=== PATIENT | male | born 1960 | race Caucasian/White ===

== ENCOUNTER 2023-06-08 07:13 | Day surgery (SDC) | payer OTHER ==
[2023-06-04 10:26] VITALS: BMI 32.0
[~2023-06-08 07:13] MED LIST: LACTATED RINGERS 1,000 ML IV SCH; LIDOCAINE 1% (10MG/ML) FOR IV START INTRADERMA PRN
[2023-06-08] MEDS ORDERED: LACTATED RINGERS 1,000 ML IV ONE (07:29)
[2023-06-08 07:50] LABS: Glucose,Whole Blood 200 mg/dL (70-110)
[2023-06-08 08:00] VITALS: TEMP 96.8
[2023-06-08] MEDS ORDERED: PROPOFOL 10 MG/ML 20 ML VIAL IV ONE (08:12)
--- NOTE | 2023-06-08 08:38 | P.PCN ---
Date of Procedure: 06/08/23 Procedure(s) Performed: BRIEF HISTORY: Patient is a 63-year-old pleasant white male scheduled for an elective colonoscopy as a part of evaluation of prior history of colon polyps. PROCEDURE PERFORMED: Colonoscopy. PREOPERATIVE DIAGNOSIS: History of colon polyps. IV sedation per Anesthesia. PROCEDURE: After informed consent was obtained, the patient, was brought into the endoscopy unit. IV sedation was administered by Anesthesia under continuous monitoring. Digital rectal examination was normal. Initially the Olympus CF-160 flexible video colonoscope was then inserted in the rectum, gradually advanced into the cecum without any difficulty. Careful examination was performed as the scope was gradually being withdrawn. Ileocecal valve and the appendiceal orifice were visualized and appeared normal. Prep was fair.. Mucosa of the cecum, ascending colon, transverse colon, descending colon, sigmoid colon, and rectum appeared normal. Retroflexion was performed in the rectum and no lesions were seen. The patient tolerated the procedure well. IMPRESSION: Normal-appearing colon from rectum to cecum no evidence of colorectal neoplasia. RECOMMENDATIONS: Findings of this examination were discussed with the patient as well as his family. He was advised to have a repeat screening colonoscopy in 10 years..
[2023-06-08 09:19] VITALS: BP 103/57; PULSE 63; RESP 16
== END 2023-06-08 09:29 | disposition home or self-care (01) ==
LOC: ORWHC2ENDO 07:13
PROVIDERS: ATTEND Internal Medicine Gastroenterology
DX: Z12.11 Encounter for screening for malignant neoplasm of colon (principal); I10 Essential (primary) hypertension; E78.5 Hyperlipidemia, unspecified; E11.9 Type 2 diabetes mellitus without complications; K21.9 Gastro-esophageal reflux disease without esophagitis; Z79.84 Long term (current) use of oral hypoglycemic drugs; Z86.010 Personal history of colon polyps; Z87.891 Personal history of nicotine dependence; Z79.899 Other long term (current) drug therapy
CPT/HCPCS: 45378; J2704